=== PATIENT | female | born 1945 | race Caucasian/White ===

== ENCOUNTER → 2018-03-29 | Outpatient (CLI) | payer OTHER ==
[~2018-03-29] VITALS: Ht 157.5 cm; Wt 64.9 kg
[~2018-03-29] MED LIST: IMITREX100 MG PO; LIPITOR10 MG PO; MOBIC7.5 MG PO; PREVACID30 MG PO; REGLAN 10 MG TA10 MG PO; XANAX 0.25 MG0.25 MG PO
--- NOTE | ~2018-03-29 | HPC ---
[facility] [place] [address] PAIN MANAGEMENT CONSULTATION Name: GABI DAVILA [facility] [id number] Admission: 03/29/18 Attend Phys: Giuseppe Wiggins MD Discharge: Date of : 43 Report #: [id number] THIS REPORT FOR: //name// CC: Justin Wiggins DATE OF SERVICE: 03/29/2018 CHIEF COMPLAINT: Low back pain radiating into the right leg to the ankle. The patient is a marilyn 72-year-old active female who is here today with low back pain and radiculopathy into the right leg. 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 In December of this year while moving from her home into an apartment to decrease her household burdens, she had some increased back pain, which then developed into a fairly severe radiculopathy down into the right leg. At that time, she scored her pain as a 10/10 and although it has gradually improved over the last 2 months, it is still severe. She has had no physical therapy, but has remained active and physically, has not become sedentary. She has not used medications other than [id number] anti-inflammatories and painkillers. Pain is worse with standing and walking, going up and down steps and she has some mild weakness noted with hip flexion. She is improved when she sits still, she describes it as an aching sensation. MEDICATIONS: Atorvastatin, meloxicam, alprazolam, sumatriptan, Prevacid, metoclopramide. ALLERGIES: None. PAST MEDICAL HISTORY: Positive for tonsillectomy and a bilateral tubal ligation many years ago. She denies any cardiovascular, pulmonary, renal, or GI problems. SOCIAL HISTORY: . Nonsmoker. Drinks alcohol once or twice a week at the most. 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 She does not regularly exercise, but seems to be very active, otherwise. REVIEW OF SYSTEMS: Positive for some blurred vision and occasional nausea and vomiting and nocturia. Otherwise, pretty normal and negative by her own report. PHYSICAL EXAMINATION: This is a very pleasant, outgoing 72-year-old with a blood pressure of 140/78, heart rate 73. She is 5 feet 2 inches, 143 pounds, BMI of 26. She moves easily from sitting to standing and ambulates without difficulty. She is not a fall risk. Examination of the spine reveals a slight [facility] [address] [place] [address] PAIN MANAGEMENT CONSULTATION Name: GABI DAVILA Room #: REG [facility]#: [id number] Admission: 03/29/18 Attend Phys: Giuseppe Wiggins MD Discharge: Date of : 43 Report #: [id number] thoracic curvature with rotation in a dextrorotation direction. There is mild tenderness in the upper lumbar region, but the most discomfort comes in the lumbosacral region where she has pain across the iliac crest. She has pain with forward flexion, extension and rotation. Slight restriction in all these movements. Straight leg raising on the right reproduces mild pain. There is some weakness in hip flexion and that reproduces pain in the radicular distribution as well as low back. Deep tendon reflexes are trace at best knees and ankles. Mild numbness located in the outer aspect of the right leg to light touch. Chest was clear to auscultation. Cardiac regular rhythm without murmur. X-rays available, plain films that show substantial degenerative changes throughout the lumbar spine. IMPRESSION: Low back pain with right unilateral radicular symptoms into the lateral aspect of the leg. RECOMMENDATIONS: She is an excellent candidate for an epidural steroid injection having now endured the pain for 3 months with only moderate improvement. Her pain follows an L4-L5, L5-S1 distribution. I would inject her at L4-L5 using a lumbar ____ midline, slightly right paramedian approach. Followup visit once we have preauthorization from her ____ insurance. She is greatly disappointed that we could not proceed today with her injection. I plan to see her back in the pain clinic at our earliest available appointment. By: [id number] Giuseppe Wiggins MD /nt
[2018-03-29 10:21] VITALS: BP 140/78
== END ==
LOC: PAIN 05:21
DX: M54.5 Low back pain (principal); M79.604 Pain in right leg

== ENCOUNTER → 2018-04-09 | Outpatient (CLI) | payer OTHER ==
[~2018-04-09] VITALS: Ht 157.5 cm; Wt 65.0 kg
--- NOTE | ~2018-04-09 | HPC ---
[facility] [place] [address] [place] [address] PAIN MANAGEMENT CONSULTATION Name: GABI DAVILA Room #: REG CLDevante Markus.#: [id number] Admission: 04/09/18 Attend Phys: Giuseppe Wiggins MD Discharge: Date of : 43 Report #: [id number] THIS REPORT FOR: //name// CC: Justin Wiggins DATE OF SERVICE: 04/09/2018 Followup visit for lumbar radiculopathy, right L5 distribution. The patient returns to pain clinic today for her epidural injection. She was seen on 03/29/2018. We have received preauthorization to go forward with the injection. Potential benefits and risks of the injection have been discussed and I have reviewed the procedure with her in detail. There have been no significant changes since her previous visit. No new changes in medications. IMPRESSION: Lumbar radiculopathy. Pain follows the right L4, L5, S1 distribution. PROCEDURE: The patient was taken to fluoroscopic suite, placed prone, skin prepped with ChloraPrep. Skin anesthetized over L4-L5 to the right of midline. A 20-gauge Tuohy epidural needle advanced in the epidural space with loss of resistance technique. There was no blood or CSF aspirated. 1 mL of Omnipaque injected. Good spread of dye observed in the epidural space followed by 3 mL of 0.5% lidocaine mixed with 80 mg of triamcinolone. She tolerated the procedure well. She was observed for 45 minutes and discharged. Follow up as needed. By: [id number] Giuseppe Wiggins MD /ankit
[2018-04-09 13:57] VITALS: BP 130/70
== END | disposition home or self-care (01) ==
LOC: PAIN 00:33
DX: M54.16 Radiculopathy, lumbar region (principal); Z79.899 Other long term (current) drug therapy

== ENCOUNTER → 2018-05-21 | Outpatient (CLI) | payer OTHER ==
[~2018-05-21] VITALS: Ht 157.5 cm; Wt 64.7 kg
--- NOTE | ~2018-05-21 | HPC ---
[facility] [place] [address] [address] [place] [address] PAIN MANAGEMENT CONSULTATION Name: GABI DAVILA Room #: REG CLDevante Aparicio.#: [id number] Admission: 05/21/18 Attend Phys: Giuseppe Wiggins MD Discharge: Date of : 43 Report #: [id number] THIS REPORT FOR: //name// CC: Justin Wiggins DATE OF SERVICE: 05/21/2018 Followup visit for chronic low back pain with radiculopathy. The patient returns to the pain clinic today after receiving an epidural injection on 04/09/2018. She had a nice response. The pain reduced for over one month. She was basically pain free for about 3 weeks. Pain is now back in the same distribution, slightly higher in the buttock, without as much pain down into the leg. 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 The activities seem to have exacerbated some of her pain. PQRS REVIEW: 1. No history of osteoarthritis. 2. BMI 26.1. 3. Blood pressure 152/63, heart rate 71. 4. Pain intensity 5. 5. No fall risk. 6. No blood thinners. 7. No hypertension. 8. No opioid medication. 9. No tobacco use, but she does drink alcohol socially. PHYSICAL EXAMINATION: Pleasant female, moves easily from sitting to standing position, walks with mild antalgic features. Straight leg raising reproduces pain into the right hip and the posterolateral aspect of the right leg. IMPRESSION: Lumbar radiculopathy. Pain in the L4-L5 distribution. The patient has responded nicely to a single epidural injection 1-1/2 months ago. RECOMMENDATIONS: We will repeat the epidural injection once we receive preauthorization. Hopefully, this will be the final injection. [facility] [address] [place] [address] PAIN MANAGEMENT CONSULTATION Name: GABI DAVILA Room #: REG CLI MR.#: [id number] Admission: 05/21/18 Attend Phys: Giuseppe Wiggins MD Discharge: Date of : 43 Report #: [id number] Followup visit as soon as we have preauthorization approval. By: [id number] Giuseppe Wiggins MD /nt
[2018-05-21 10:31] VITALS: BP 142/63
--- NOTE | 2018-05-21 10:44 | NUR ---
Pain Clinic Assessment: 1. History of Osteoarthritis: Not Applicable History of Rheumatoid Arthritis: Not Applicable 2. Height: 5 ft. 2 in. 157.5 cm. Weight: 142.6 lb. oz. 64.683 kg. Patient's BMI: 26.1 3. Vital Signs: BP: 142/63 Pulse: 71 Resp: 14 Temp: 02 Sat: 96 ECG Mon: 4. Pain Intensity: 5 5. Fall Risk: Dizziness: N Needs help standing or walking: N Fallen in the last 3 months: N Fall risk comments: 6. Patient on Blood Thinner: None 7. History of Hypertension: N 8. Opioid Therapy greater than 6 weeks: N Opiate Contract Signed: 9. Risk Assessment Tool Provided: 10. Functional Assessment Tool: 11. Recreational Drug Use: Never Drug Type: Tobacco Use: Never Smoker Tobacco Type: Amount or Packs/day: How Many Years: Alcohol Use: Yes Frequency: Quant:
== END ==
LOC: PAIN 07:29
DX: M54.16 Radiculopathy, lumbar region (principal)

== ENCOUNTER → 2018-05-24 | Outpatient (CLI) | payer OTHER ==
[~2018-05-24] VITALS: Ht 157.5 cm; Wt 64.4 kg
--- NOTE | ~2018-05-24 | HPC ---
[facility] [place] [address] [place] [address] PAIN MANAGEMENT CONSULTATION Name: GABI DAVILA [facility] #: [facility] [id number] Admission: 05/24/18 Attend Phys: Giuseppe Wiggins MD Discharge: Date of : 43 Report #: [id number] THIS REPORT FOR: //name// CC: Justin Wiggins REASON FOR CONSULTATION: Followup visit for lumbar radiculopathy. HISTORY OF PRESENT ILLNESS: The patient returns to pain clinic today in followup for lumbar radiculopathy. 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 We will preauthorize her for another epidural injection. She has significant degenerative changes throughout the spine, which are noted even on plain film x-rays and spot films in the clinic. This is consistent with disk degeneration, resultant in radiculopathy. PHYSICAL EXAMINATION: She is marilyn 72-year-old pleasant, outgoing and alert. Her pain score today is an 8/10. It is worse with moving, bending, twisting and turning. She describes it as a constant, aching. Pain radiates to the right leg. IMPRESSION: Lumbar radiculopathy, L4-L5 and L5-S1. PROCEDURE: Repeat epidural injection under fluoroscopic guidance. She was taken to fluoroscopic suite, placed prone, skin prepped with ChloraPrep. Skin anesthetized over the L4-L5 interspace. I was then able to obtain entry into the epidural space on the right side of the epidural spaces. I at L4-L5 despite several attempts. The needle was withdrawn. The skin was anesthetized over L5-S1. A 20-gauge Tuohy epidural needle was then advanced into the epidural space with loss of resistance technique to the right of midline extending high into the epidural space at that level. 1 mL of Omnipaque was injected. Good spread of dye was observed into the epidural space extending cephalad and caudad covering well the L4, L5 and S1 nerve roots. It was then followed by 3 mL of 0.5% lidocaine mixed with 80 mg of triamcinolone. She tolerated the procedure well. She was observed in the recovery room for 30 minutes. Pain score was 0 at discharge. Followup visit planned as needed for another epidural injection in the future. We will try to continue to provide injections carefully and consciously and reasonably to help manage these symptoms of radiculopathy. I do not think she is a surgical candidate if we can keep her pain under control. By: [id number] Giuseppe Wiggins MD /ankit
[2018-05-24 14:53] VITALS: BP 186/98
--- NOTE | 2018-05-24 14:57 | NUR ---
Pain Clinic Assessment: 1. History of Osteoarthritis: Not Applicable History of Rheumatoid Arthritis: Not Applicable 2. Height: 5 ft. 2 in. 157.5 cm. Weight: 142.0 lb. oz. 64.411 kg. Patient's BMI: 26.0 3. Vital Signs: BP: 186/98 Pulse: 71 Resp: 16 Temp: 02 Sat: 94 ECG Mon: 4. Pain Intensity: 8 5. Fall Risk: Dizziness: N Needs help standing or walking: N Fallen in the last 3 months: N Fall risk comments: 6. Patient on Blood Thinner: None 7. History of Hypertension: N 8. Opioid Therapy greater than 6 weeks: N Opiate Contract Signed: 9. Risk Assessment Tool Provided: 0-LOW 10. Functional Assessment Tool: 11. Recreational Drug Use: Never Drug Type: Tobacco Use: Never Smoker Tobacco Type: Amount or Packs/day: How Many Years: Alcohol Use: Yes Frequency: Quant:
== END | disposition home or self-care (01) ==
LOC: PAIN 10:59
DX: M54.16 Radiculopathy, lumbar region (principal); Z79.899 Other long term (current) drug therapy